=== PATIENT | male | born 1990 | race African-American/Black ===

== ENCOUNTER 2018-04-03 12:02 | Emergency (ER) | payer MEDICAID ==
[~2018-04-03] VITALS: Ht 182.9 cm; Wt 81.0 kg
[2018-04-03 12:09] VITALS: BP 133/79
== END 2018-04-03 13:12 | disposition home or self-care (01) ==
LOC: ER 12:02
DX: K04.7 Periapical abscess without sinus (principal)
CPT/HCPCS: 99283

== ENCOUNTER 2020-04-22 10:04 | Emergency (ER) | payer MEDICAID ==
[~2020-04-22] VITALS: Ht 182.9 cm; Wt 82.0 kg
[2020-04-22] MEDS ORDERED: TETRACAINE 0.5% OPHTH DROPS 4ML LEFTEYE ONE (11:00)
[2020-04-22] MEDS ORDERED: FLUORESCEIN SODIUM 1MG/STRIP LEFTEYE ONE (11:00)
[2020-04-22 11:56] VITALS: BP 112/75
== END 2020-04-22 11:57 | disposition home or self-care (01) ==
LOC: ER 10:04
DX: S00.12XA Contusion of left eyelid and periocular area, initial encounter (principal); X58.XXXA Exposure to other specified factors, initial encounter; Y93.89 Activity, other specified; Y92.89 Other specified places as the place of occurrence of the external cause; Y99.8 Other external cause status; F12.10 Cannabis abuse, uncomplicated; F15.10 Other stimulant abuse, uncomplicated
CPT/HCPCS: 99283